=== PATIENT | female | born 1995 | race Caucasian/White ===

== ENCOUNTER 2020-10-27 13:16 | Outpatient (REF) | payer OTHER, SELFPAY ==
[2020-10-28 04:46] LABS: HBS Num1 0.12 mIU/mL (0-7.99); ~Hepatitis B Surface Antibody NONREACTIVE (Nonreactive)
[2020-10-28 07:27] LABS: Rubella IgG Antibody 5.38 Index; Rubeola IgG (Measles) >300.00 AU/mL
[2020-10-29 21:58] LABS: TS Negative Control Passed; TS Panel A 0; TS Panel B 0; TS Positive Control Passed; TSpotTB Negative (SeeBelow)
== END 2020-10-27 13:17 | disposition home or self-care (01) ==
LOC: HO.LNP 13:16
PROVIDERS: Visit Provider Internal Medicine
DX: Z02.1 Encounter for pre-employment examination (principal); Z01.84 Encounter for antibody response examination
CPT/HCPCS: 86481; 86706; 86735; 86762; 86765; 86787